=== PATIENT | male | born 1975 | race Two or more races ===

== ENCOUNTER 2024-02-19 10:41 | Emergency (ER) | payer MEDICARE, OTHER ==
[~2024-02-19] VITALS: Ht 182.9 cm; Wt 127.0 kg
[2024-02-19 10:46] VITALS: BP 173/110; TEMP 98.3; O2SAT 98
[2024-02-19] MEDS ORDERED: PRED50TA PO (10:58)
[2024-02-19] MEDS ORDERED: CAPS1ADH5 TP (10:58)
== END 2024-02-19 11:05 | disposition home or self-care (01) ==
LOC: ER 10:46
DX: M54.50 Low back pain, unspecified (principal); Z88.8 Allergy status to other drugs, medicaments and biological substances

== ENCOUNTER 2024-08-30 22:49 | Emergency (ER) | payer MEDICARE, OTHER ==
[~2024-08-30] VITALS: Ht 182.9 cm; Wt 127.0 kg
[~2024-08-30 22:49] MED LIST: CAPS1ADH5 TP; PRED50TA PO
[2024-08-30 23:27] VITALS: TEMP 98.6
[2024-08-31] MEDS ORDERED: HYDROCODONE/APAP 5/325MG TABLET ONE (00:13)
[2024-08-31] MEDS: HYDROCODONE/APAP 5/325MG TABLET PO ONE ×2 (00:20→01:33)
[2024-08-31 00:25] VITALS: BP 134/80; O2SAT 99
[2024-08-31 00:26] LABS: APPEARANCE,URINE CLEAR (CLEAR); BILIRUBIN,URINE NEGATIVE (NEGATIVE); BLOOD, URINE NEGATIVE Ery/uL (NEGATIVE); COLOR,URINE YELLOW (YELLOW); KETONES,URINE NEGATIVE (NEGATIVE); LEUKOCYTE ESTERASE ,URINE NEGATIVE (NEGATIVE); NITRITE, URINE NEGATIVE (NEGATIVE); PROTEIN,URINE TRACE mg/dl (NEGATIVE); UGLUCOSE NEGATIVE (NEGATIVE)
[2024-08-31 00:40] LABS: ADD URINE CULTURE NO; BACTERIA,URINE None seen /HPF (None Seen); MUCUS,URINE Few /LPF (None Seen); RBC,URINE NONE SEEN /HPF (0-2); SQUAMOUS EPITHELIAL CELL,UR None Seen /HPF (None Seen); WBC,URINE NONE SEEN /HPF (0-3)
[2024-08-31] MEDS ORDERED: HYDR-3980 PO (01:28)
== END 2024-08-31 01:34 | disposition home or self-care (01) ==
LOC: ER 23:03
DX: S30.22XA Contusion of scrotum and testes, initial encounter (principal); E66.01 Morbid (severe) obesity due to excess calories; Z79.52 Long term (current) use of systemic steroids; Z88.6 Allergy status to analgesic agent; Z98.84 Bariatric surgery status; Z68.38 Body mass index [BMI] 38.0-38.9, adult; X58.XXXA Exposure to other specified factors, initial encounter; Y93.89 Activity, other specified; Y92.098 Other place in other non-institutional residence as the place of occurrence of the external cause; Y99.8 Other external cause status
CPT/HCPCS: 76870-TC; 81001